=== PATIENT | female | born 1990 | race Caucasian/White ===

== ENCOUNTER 2018-05-19 05:20 | Inpatient (IN) | payer BC, OTHER ==
[2018-05-19] MEDS ORDERED: CITRIC ACID-SODIUM CITRATE 15 ML CUP PO ONE (06:02)
[2018-05-19] MEDS ORDERED: LACTATED RINGERS 1,000 ML IV ONE (06:02)
[2018-05-19 06:16] LABS: Basophils % (A) 0 %; Eosinophils # (A) 0.1 k/uL (0-0.7); Eosinophils % (A) 1 %; HCT 34.2 % (34.0-46.0); HGB 11.8 gm/dL (11.4-16.0); Lymphocytes # (A) 0.8 k/uL (1.0-4.8); Lymphocytes % (A) 12 %; MCH 29.3 pg (25.0-35.0); MCHC 34.4 g/dL (31.0-37.0); MCV 85.1 fL (80.0-100.0); Mean Platelet Volume 7.7; Monocytes # (A) 0.4 k/uL (0-1.0); Monocytes % (A) 6 %; Neutrophils # (A) 5.6 k/uL (1.3-7.7); Neutrophils % (A) 81 %; Platelet Count 118 k/uL (150-450); RBC 4.01 m/uL (3.80-5.40); RDW 15.3 % (11.5-15.5)
[2018-05-19] MEDS ORDERED: ceFAZolin IN SWFI 2 GM/20 ML SYRINGE IVP ONE (06:33)
[2018-05-19] MEDS ORDERED: OXYTOCIN 10 UNIT/ML 1 ML VIAL ONE (06:56)
[2018-05-19] MEDS ORDERED: MORPHINE SULFATE (PF) 0.3 MG/0.3 ML SYR ONE (06:56)
[2018-05-19] MEDS ORDERED: ONDANSETRON 4 MG/2 ML VIAL ONE (06:56)
[2018-05-19] MEDS ORDERED: KETOROLAC 30 MG/ML 1 ML VIAL ONE (06:56)
[2018-05-19] MEDS ORDERED: NALBUPHINE 10 MG/ML VIAL (10ML MDV) ONE (06:56)
--- NOTE | 2018-05-19 07:45 | P.HPOB ---
History of Present Illness H&P Date: 05/19/18 Chief Complaint: Spontaneous rupture of membranes This is a 27-year-old female 2 para 1 with an estimated date of confinement of 06/15/2018, estimated gestational age of 37-4/7 weeks, who presented to labor and delivery with complaints of spontaneous rupture of membranes at approximately 4:15 AM with clear fluid noted. She was feeling very mild irregular contractions. care has been with Dr. Grider and she is scheduled for a section with tubal ligation in approximately 2 weeks. She states her course has been uncomplicated. labs: GC/Chlamydia-negative Hepatitis B surface antigen-negative RPR-nonreactive Rubella-immune Blood type-O- Antibody screen-negative HIV-nonreactive Hemoglobin-14.2 Random glucose-80 Group B streptococcus-positive One hour Glucola-elevated, 3 hour Glucola-within normal limits Obstetrical history: . History of 1 delivery at term for failure to progress. Review of Systems Constitutional: Denies chills, Denies fever Eyes: denies blurred vision, denies pain Ears, nose, mouth and throat: Denies headache, Denies sore throat Cardiovascular: Denies chest pain, Denies shortness of breath Respiratory: Denies cough Gastrointestinal: Denies abdominal pain, Denies diarrhea, Denies nausea, Denies vomiting Genitourinary: Reports pelvic pain, Reports Musculoskeletal: Reports low back pain Integumentary: Denies pruritus, Denies rash Neurological: Denies numbness, Denies weakness Psychiatric: Denies anxiety, Denies depression Past Medical History Past Medical History: Asthma History of Any Multi-Drug Resistant Organisms: None Reported Past Surgical History: Section Past Anesthesia/Blood Transfusion Reactions: No Reported Reaction Past Psychological History: No Psychological Hx Reported Smoking Status: Current every day smoker Past Alcohol Use History: None Reported Past Drug Use History: None Reported - Past Family History Father Family Medical History: Cancer, Hypertension Medications and Allergies Home Medications Medication Instructions Recorded Confirmed Type No Known Home Medications 05/19/18 05/19/18 History Allergies Allergy/AdvReac Type Severity Reaction Status Date / Time sulfamethoxazole Allergy Intermediate Itching Verified 05/19/18 05:25 [From Bactrim] trimethoprim [From Bactrim] Allergy Intermediate Itching Verified 05/19/18 05:25 Penicillins Allergy Unknown Verified 05/19/18 05:25 Childhood Exam Osteopathic Statement: *. No significant issues noted on an osteopathic structural exam other than those noted in the History and Physical/Consult. Vital Signs Temp Pulse Resp BP Pulse Ox 05/19/18 05:39 97.2 F L 99 16 130/83 05/19/18 05:25 97.2 F L 99 15 130/83 99 Intake and Output 05/18/18 05/19/18 05/19/18 22:59 06:59 14:59 Other: # Voids 1 Weight 88.451 kg HEENT: Within normal limits Heart: Regular rate and rhythm Lungs: Clear to auscultation bilaterally Abdomen: Cervix: 4 cm/thick/-2 station. Positive clear fluid is noted. Positive amnisure is noted. heart tones: Reactive Contractions: Irregular Extremities: Negative Homans Results Result Diagrams: 05/19/18 05:50 Abnormal Lab Results - Last 24 Hours (Table) 05/19/18 Range/Units 05:50 Plt Count 118 L (150-450) k/uL Lymphocytes # 0.8 L (1.0-4.8) k/uL Assessment and Plan (1) 37 weeks gestation of Current Visit: Yes Status: Acute Code(s): Z3A.37 - 37 WEEKS GESTATION OF SNOMED Code(s): 74274852 (2) Spontaneous rupture of membranes Current Visit: Yes Status: Acute Code(s): MQM4704 - SNOMED Code(s): 249747542 (3) Previous delivery affecting Current Visit: Yes Status: Acute Code(s): O34.219 - MATERNAL CARE FOR UNSP TYPE SCAR FROM PREVIOUS DEL SNOMED Code(s): 484570464 (4) Family planning Current Visit: Yes Status: Acute Code(s): Z30.09 - ENCOUNTER FOR OTH GENERAL CNSL AND ADVICE ON CONTRACEPTION SNOMED Code(s): 754712242 Plan: Plan is to proceed with repeat section with bilateral partial salpingectomy. I have discussed the risks, benefits, and alternative therapies for the above- mentioned procedure and for both sedation/anesthesia as well as necessary blood products administration, if indicated, as they pertain to this patient. The patient has indicated her understanding and acceptance of the risks and procedures discussed.
--- NOTE | 2018-05-19 07:49 | P.OP ---
Date of Procedure: 05/19/18 Preoperative Diagnosis: 1. Intrauterine at 37-4/7 weeks. 2. Spontaneous rupture of membranes. 3. History of previous section. 4. Family-planning. Postoperative Diagnosis: Same Procedure(s) Performed: Repeat low transverse section with bilateral partial salpingectomy Anesthesia: spinal (Duramorph) Surgeon: Ena Rose Ambulatory Care Coordinator #1: Owen Altamirano Estimated Blood Loss (ml): 500 Pathology: other (Portions of right and left fallopian tubes) Condition: stable Disposition: floor Indications for Procedure: This is a 27-year-old female 2 para 1 at 37-4/7 weeks who presents with spontaneous rupture of membranes. She is noted to be 4 cm dilated. Plan is to proceed with repeat section with bilateral partial salpingectomy. I have discussed the risks, benefits, and alternative therapies for the above- mentioned procedure and for both sedation/anesthesia as well as necessary blood products administration, if indicated, as they pertain to this patient. The patient has indicated her understanding and acceptance of the risks and procedures discussed. Operative Findings: A viable female is noted in the vertex presentation with scores of 9 at 1 minute and 10 at 5 minutes and infant weight of 6 pounds 5.5 ounces. Normal uterus tubes and ovaries are noted. Description of Procedure: The patient is taken to the operating room where she is placed in the dorsal supine position with leftward tilt after spinal Duramorph anesthesia is given. She is prepped and draped in the normal sterile fashion. Skin was tested and found to be adequately anesthetized. A Pfannenstiel skin incision was made with a scalpel through the previous laparotomy scar. A second knife was used to carry the incision down to the underlying layer of fascia. The fascia was nicked in the midline with a scalpel and then extended laterally bilaterally with Triplett scissors. The anterior lip of the fascia was grasped with 2 Julián clamps and then dissected off the underlying rectus muscle in the midline with Triplett scissors. The inferior aspect of the fascial incision was grasped with 2 Julián clamps and dissected off the underlying rectus muscle and the midline with Triplett scissors. Next the peritoneum layer was tented up with 2 hemostats and then entered sharply with the scalpel. The incision is extended superiorly and inferiorly with Metzenbaum scissors. Next a DeLee retractor is placed. The vesicouterine peritoneum is entered sharply with Metzenbaum scissors and extended laterally bilaterally with Metzenbaum scissors and then the bladder flap is pushed inferiorly. The lower uterine segment is incised in transverse fashion with the scalpel and then bluntly entered with a hemostat. Clear fluid is noted. The incision was then extended laterally bilaterally with 2 fingers. Next the 's head is delivered through the incision. Nose and mouth are bulb suctioned. The remainder of the is easily delivered and placed on mother's abdomen. Cord is clamped and cut. Cord blood is obtained secondary to Rh- status. Infant is taken to warmer by nursing staff. Uterine fundus is gently massaged and placenta is delivered manually. Uterus is exteriorized and cleared of all clots and debris. Uterine incision is closed with 0 Vicryl suture in a running locked fashion. A second layer of 0 Vicryl suture is used in a running fashion for hemostasis. Once adequate hemostasis as assured, the vesicouterine peritoneum is reapproximated with 2-0 Vicryl suture in a running fashion. Next attention is turned to the tubes. The left fallopian tube is grasped with a hemostat and then the mesosalpinx is entered with Bovie cautery. 0 Vicryl suture is tied 2 times around both the proximal and distal portion of the tube. The knuckle of tube was then removed with Metzenbaum scissors. The ends of the tube are cauterized with Bovie cautery. The same procedure is carried out on the right fallopian tube. Posterior cul-de-sac is suctioned of all clots and debris. Uterus is returned to the abdomen. Incision is noted to be hemostatic. Both tubal sites are noted to be hemostatic. Peritoneal layer is closed with 0 Vicryl suture in a running fashion. Muscle layer is reapproximated with 0 Vicryl suture in interrupted fashion. Fascia layer is then closed with 0 PDS suture with 2 sutures meeting in the midline and the knots buried in either side and in the midline. The subcutaneous tissue was then closed with 2-0 Vicryl suture. Skin layer was then closed with nicky. All sponge and needle counts are correct. The patient is taken to recovery room in stable condition.
[2018-05-19] MEDS ORDERED: diphenhydrAMINE 50 MG/ML 1 ML VIAL IVP PRN ×2 (08:47)
[2018-05-19] MEDS ORDERED: OXYTOCIN 20 UNITS/1000 ML NS 1,000 ML IV SCH (08:47)
[2018-05-19] MEDS ORDERED: ONDANSETRON 4 MG/2 ML VIAL IVP PRN (08:47)
[2018-05-19] MEDS ORDERED: ZOLPIDEM 5 MG TAB PO PRN (08:47)
[2018-05-19] MEDS ORDERED: SIMETHICONE 80 MG CHEWABLE PO PRN (08:47)
[2018-05-19] MEDS ORDERED: diphenhydrAMINE 25 MG CAP PO PRN (08:47)
[2018-05-19] MEDS ORDERED: HYDROcodone/APAP 5-325MG 1 EACH TAB PO PRN (08:47)
[2018-05-19] MEDS ORDERED: METOCLOPRAMIDE 5 MG/ML 2 ML VIAL IVP PRN (08:47)
[2018-05-19] MEDS ORDERED: HYDROcodone/APAP 7.5-325MG 1 EACH TAB PO PRN (08:47)
[2018-05-19] MEDS ORDERED: diphenhydrAMINE 50 MG CAP PO PRN (08:47)
[2018-05-19] MEDS ORDERED: NALOXONE 0.4 MG/ML 1 ML VIAL IV PRN (08:47)
[2018-05-19] MEDS: SENNOSIDES-DOCUSATE SODIUM 1 EACH TAB PO SCH ×2 (10:12→20:34)
[2018-05-19] MEDS: LACTATED RINGERS 1,000 ML IV SCH ×2 (12:30→17:25)
[2018-05-19] MEDS: KETOROLAC 30 MG/ML 1 ML VIAL IVP PRN ×2 (14:07→20:33)
[2018-05-20] MEDS: KETOROLAC 30 MG/ML 1 ML VIAL IVP PRN (03:55)
[2018-05-20 05:58] LABS: Basophils % (A) 0 %; Eosinophils % (A) 1 %; HCT 32.6 % (34.0-46.0); HGB 11.2 gm/dL (11.4-16.0); Lymphocytes % (A) 14 %; MCH 29.5 pg (25.0-35.0); MCHC 34.2 g/dL (31.0-37.0); MCV 86.2 fL (80.0-100.0); Mean Platelet Volume 7.7; Monocytes # (A) 0.3 k/uL (0-1.0); Monocytes % (A) 5 %; Neutrophils # (A) 5.3 k/uL (1.3-7.7); Neutrophils % (A) 78 %; Platelet Count 127 k/uL (150-450); RBC 3.78 m/uL (3.80-5.40); RDW 15.3 % (11.5-15.5); WBC 6.7 k/uL (3.8-10.6)
[2018-05-20] MEDS: SENNOSIDES-DOCUSATE SODIUM 1 EACH TAB PO SCH (09:30)
[2018-05-20] MEDS: IBUPROFEN 600 MG TAB PO PRN ×3 (11:28→23:13)
--- NOTE | 2018-05-20 11:56 | P.PNOBGPC ---
Subjective - Subjective Principal diagnosis: Status post repeat section with tubal postoperative day #1 Interval history: Patient is doing well. She is passing flatus but no bowel movement yet. Pain is fairly well controlled with ibuprofen. Lochia is decreasing. She is bottle feeding. Patient reports: Reports appetite normal, Reports voiding normally, Reports pain well controlled, Reports ambulating normally [place]: doing well, bottle feeding Objective - Vital Signs Latest vital signs: Vital Signs Temp Pulse Resp BP Pulse Ox 05/20/18 07:46 97.8 F 76 16 121/84 99 05/20/18 03:59 98.2 F 81 18 116/73 99 05/20/18 00:00 98.5 F 78 18 117/69 99 05/19/18 20:00 98.6 F 80 18 113/74 100 05/19/18 16:31 98.2 F 81 16 122/71 98 05/19/18 12:00 98.3 F 79 16 110/59 98 Intake and Output 05/19/18 05/20/18 05/20/18 22:59 06:59 14:59 Intake Total 1000 Output Total 1150 Balance -150 Intake: Intake, IV Titration 1000 Amount Lactated Ringers 1,000 ml 1000 @ 125 mls/hr IV .Q8H [facility] Rx#:[id number] Output: Urine 1150 Uretheral ([place]) 600 Other: # Voids 2 1 1 - Exam Extremities: Present: normal. Absent: tenderness Abdomen: Present: normal appearance, soft (Positive bowel sounds 4). Absent: distention, tenderness Incision: Present: normal, dry, intact. Absent: erythematous Uterus: Present: normal, firm. Absent: tenderness - Labs Labs: Abnormal Lab Results - Last 24 Hours (Table) 05/20/18 Range/Units 05:34 RBC 3.78 L (3.80-5.40) m/uL Hgb 11.2 L (11.4-16.0) gm/dL Hct 32.6 L (34.0-46.0) % Plt Count 127 L (150-450) k/uL Assessment and Plan Assessment: Impression is status post repeat section with bilateral partial subjective a postoperative day #1 (1) 37 weeks gestation of Current Visit: Yes Status: Acute Code(s): Z3A.37 - 37 WEEKS GESTATION OF SNOMED Code(s): 16380883 (2) Spontaneous rupture of membranes Current Visit: Yes Status: Acute Code(s): CTP7931 - SNOMED Code(s): 813306320 (3) Previous delivery affecting Current Visit: Yes Status: Acute Code(s): O34.219 - MATERNAL CARE FOR UNSP TYPE SCAR FROM PREVIOUS DEL SNOMED Code(s): 363317293 (4) Family planning Current Visit: Yes Status: Acute Code(s): Z30.09 - ENCOUNTER FOR OTH GENERAL CNSL AND ADVICE ON CONTRACEPTION SNOMED Code(s): 395835567 Plan: Continue with postoperative care. Anticipate discharge home tomorrow.
[2018-05-20] MEDS: ACETAMINOPHEN TAB 325 MG TAB PO PRN ×2 (14:36→20:10)
--- NOTE | 2018-05-20 17:40 | P.PN ---
Progress Note - Text Progress Note Date: 05/20/18 Postoperative day 1 status post section under spinal anesthesia, and intrathecal morphine given for postoperative analgesia, patient doing well, there is no anesthesia related complications, Patient had no headache, vital signs stable , Assessment and plan= postop day 1 status post , doing well there is no anesthesia related complication.
[2018-05-21] MEDS: SENNOSIDES-DOCUSATE SODIUM 1 EACH TAB PO SCH ×2 (01:51→08:19)
[2018-05-21 01:53] VITALS: RESP 18
[2018-05-21] MEDS: ACETAMINOPHEN TAB 325 MG TAB PO PRN ×2 (02:09→08:20)
[2018-05-21] MEDS: IBUPROFEN 600 MG TAB PO PRN ×2 (05:15→11:08)
--- NOTE | 2018-05-21 06:15 | P.PNOBGPC ---
Subjective - Subjective Patient reports: Reports appetite normal, Reports voiding normally, Reports pain well controlled, Reports ambulating normally : doing well Objective - Vital Signs Latest vital signs: Vital Signs Temp Pulse Resp BP Pulse Ox 05/21/18 00:00 97.7 F 78 18 117/67 99 05/20/18 16:00 98.0 F 73 16 138/69 99 05/20/18 07:46 97.8 F 76 16 121/84 99 Intake and Output 05/20/18 05/20/18 05/21/18 14:59 22:59 06:59 Other: # Voids 1 1 2 - Exam Lungs: bilateral: normal Chest: Normal S1, Normal S2 Extremities: Present: normal Abdomen: Present: normal appearance, soft. Absent: distention, tenderness Incision: Present: normal, dry, intact Uterus: Present: normal, firm - Labs Labs: Abnormal Lab Results - Last 24 Hours (Table) 05/20/18 Range/Units 05:34 RBC 3.78 L (3.80-5.40) m/uL Hgb 11.2 L (11.4-16.0) gm/dL Hct 32.6 L (34.0-46.0) % Plt Count 127 L (150-450) k/uL Assessment and Plan Assessment: Post operative day #2. Patient is without complaints wishes to go home. Vital signs are stable she's afebrile. Her incision is intact and dry. My impression is that this is a normal postoperative course. Plan is to continue routine postoperative care discharge home later today (1) Previous delivery affecting Current Visit: Yes Status: Acute Code(s): O34.219 - MATERNAL CARE FOR UNSP TYPE SCAR FROM PREVIOUS DEL SNOMED Code(s): 834287860
--- NOTE | 2018-05-21 06:36 | P.DS ---
Providers Date of admission: 05/19/18 05:35 Expected date of discharge: 05/21/18 Attending physician: Pola Grider Primary care physician: Pola Grider - Discharge Diagnosis(es) (1) Previous delivery affecting Current Visit: Yes Status: Acute Hospital Course: Please see dictated H&P and delivery note per Dr. Rose. Brief summary is a pleasant 27-year-old 2 para 1 female 37-1/2 weeks gestation mid to labor and delivery with spontaneous rupture membranes. Patient was previously scheduled for repeat section and tubal ligation. Patient undergoes above-named surgery for viable female . Please see dictated operative note. By postoperative day #2, patient is felt to be stable for discharge home follow up with me in approximately 1 week. Procedures: Repeat low transverse section and bilateral partial salpingectomy. Patient Condition at Discharge: Good Plan - Discharge Summary New Discharge Prescriptions: New Ibuprofen [Motrin] 600 mg PO Q6HR PRN #40 tab PRN Reason: Mild Pain Or Fever >= 100.5 Discharge Medication List Ibuprofen [Motrin] 600 mg PO Q6HR PRN #40 tab 05/21/18 [Rx] Follow up Appointment(s)/Referral(s): Pola Grider MD [Primary Care Provider] - 1 Week (Please see me in 6 weeks for a check as well.) Patient Instructions/Handouts: (DC) Activity/Diet/Wound Care/Special Instructions: No heavy lifting or strenuous activity for 6 weeks. No intercourse or anything per vagina for 6 weeks. Please call if any fever, chills, excessive vaginal bleeding, and/or abdominal pain. Discharge Disposition: HOME SELF-CARE
[2018-05-21 13:08] VITALS: BP 130/75; PULSE 74; TEMP 97.9
--- NOTE | 2018-05-23 08:43 | P.MSEPDOC ---
Presenting Problems - Arrival Data Date of Arrival on Unit: 05/19/18 Time of Arrival on Unit: 05:43 Mode of Transport: Wheelchair - Complaint OB-Reason for Admission/Chief Complaint: Rule Out SROM Comment: 05/19/18@0415 Medical History - Information : 2 Para: 1 Term: 1 : 0 Abortions: Spontaneous or Elective: 0 Number of Living Children: 1 - Gestational Age Gestational Age by CINTIA (wks/days): 37 Weeks and 4 Days - History Complications: Prior , Smoker Review of Systems - Review of Systems Constitutional: No problems Breast: No problems ENT: No problems Cardiovascular: No problems Respiratory: No problems Gastrointestinal: No problems Genitourinary: No problems Musculoskeletal: No problems Neurological: No problems Skin: No problems Vital Signs - Temperature Temperature: 97.9 F Temperature Source: Oral - Pulse Right Pulse Rate: 74 Pulse Assessment Method: Automatic Cuff - Respirations Respiratory Rate: 18 Oxygen Delivery Method: Room Air O2 Sat by Pulse Oximetry: 99 - Blood Pressure Right Arm Blood Pressure: 130/75 Blood Pressure Mean: 93 Blood Pressure Source: Automatic Cuff Medical Screen Scoring (Pre) - Cervical Exam Dilation: 4-7 cm = 2 Effacement: Exam Deferred Membranes: Ruptured = 3 - Uterine Contractions Frequency: > 5 minutes apart = 1 Duration: N/A Intensity: N/A - Maternal Vital Signs Maternal Temperature: N/A Maternal Blood Pressure: N/A Signs of Preeclampsia: N/A Maternal Respirations: N/A - Pain Assessment Pain Scale Used: Numeric (1 - 10) Pain Intensity: 0 Pain Management Goal: 2 Pain Description: *Acute - Maternal Trauma Maternal Trauma: N/A - Assessment Baseline FHR: 150 Heart Rate - NICHD Category: Category I (Normal) = 0 NST: Reactive Position: N/A Station: N/A - Total Score Total Score (Pre): 6 - Level of Risk Level of Risk: Medium (6-9) Physician Notification (Pre) - Physician Notified New Order Received: No Disposition - Disposition OB Disposition: Admit, LDRP Suite Discharge Date: 05/21/18 Discharge Time: 12:00 I agree with the RN Medical Screening Exam: Yes Risk & Benefit of care provided described in d/c instruction: Yes Diagnosis: MATERNAL CARE FOR BREECH PRESENTATION, UNSP
== END 2018-05-21 12:00 | disposition home or self-care (01) | DRG 766 ==
LOC: FBPOP 05:20 → 4FBP 05:35
PROVIDERS: ADMIT Obstetrics & Gynecology; ATTEND Obstetrics & Gynecology
PROC: 0UB70ZZ Excision of Bilateral Fallopian Tubes, Open Approach (ICD-10-PCS; principal; 2018-05-19 07:08)
PROC: 10D00Z1 Extraction of Products of Conception, Low, Open Approach (ICD-10-PCS; principal; 2018-05-19 07:08)
DX: O34.211 Maternal care for low transverse scar from previous cesarean delivery (principal); Z37.0 Single live birth; O99.334 Smoking (tobacco) complicating childbirth; F17.200 Nicotine dependence, unspecified, uncomplicated; Z3A.37 37 weeks gestation of pregnancy; Z82.49 Family history of ischemic heart disease and other diseases of the circulatory system; O99.824 Streptococcus B carrier state complicating childbirth; Z88.0 Allergy status to penicillin; Z88.2 Allergy status to sulfonamides; Z30.2 Encounter for sterilization
CPT/HCPCS: 59025; 84112; 85025; 86850; 86900; 86901; 88302; 99213

== ENCOUNTER → 2023-11-20 | Outpatient (CLI) | payer OTHER ==
--- NOTE | 2023-11-20 10:11 | MR ---
EXAMINATION TYPE: MR cervical spine wo con DATE OF EXAM: 11/20/2023 COMPARISON: None HISTORY: lis upper extremity pain, tingling, numbness TECHNIQUE: Multiplanar, multisequence images of the cervical spine were acquired without contrast. C2-C3: No evidence for degenerative disc disease. No disc bulge/herniation or protrusion. No Canal stenosis. Foramina are patent bilaterally. C3-C4: No evidence for degenerative disc disease. No disc bulge/herniation or protrusion. No Canal stenosis. Foramina uncovertebral joint hypertrophy in the left results in mild left neural foraminal encroachment. C4-C5: No evidence for degenerative disc disease. No disc bulge/herniation or protrusion. No Canal stenosis. Foramina are patent bilaterally. C5-C6: No evidence for degenerative disc disease. No disc bulge/herniation or protrusion. No Canal stenosis. Foramina are patent bilaterally. C6-C7: There is a central left paracentral disc herniation resulting in mild anterior compression of the spinal cord and canal stenosis. Uncovertebral joint hypertrophy result in bilateral mild foramina l encroachment. C7-T1: No evidence for degenerative disc disease. No disc bulge/herniation or protrusion. No Canal stenosis. Foramina are patent bilaterally. Cervical segments are intact. There is normal alignment. Cervical spinal cord is of normal signal. Craniovertebral low-lying cerebellar tonsils.. A central disc bulging T3-T4. Report was called to t selvin referring clinician at 10:04 AM 11/20/2023. IMPRESSION: 1. Moderate-sized central and left paracentral disc herniation C6-C7 which results in anterior compre ssion of the spinal cord with mild bilateral foraminal encroachment.
== END | disposition home or self-care (01) ==
LOC: RADMRIMAIN 08:56
PROVIDERS: ATTEND Family Medicine
DX: M50.123 Cervical disc disorder at C6-C7 level with radiculopathy (principal)
CPT/HCPCS: 72141